=== PATIENT | female | born 1955 | race Caucasian/White ===

== ENCOUNTER 2025-03-30 17:32 | Emergency (ER) | payer OTHER, SELFPAY ==
[2025-03-30 17:35] VITALS: BP 158/96
[2025-03-30 18:00] LABS: Hematocrit 41.5 % (37.0-47.0); Hemoglobin 13.8 g/dL (12.0-16.0); Mean Corp Hgb Conc. 33.3 g/dL (33.0-37.0); Mean Corpuscular Volume 88.3 fL (81.0-99.0); Nucleated Red Blood Cells % 0 %; Platelet Count 215 10^3/uL (130-400); Red Cell Dist. Width 14.0 % (11.5-14.5)
[2025-03-30 18:06] LABS: ALT (SGPT) 19 U/L (0-35); AST (SGOT) 22 U/L (14-36); Albumin 4.8 g/dl (3.5-5.0); Alkaline Phosphatase 57 U/L (38-126); Blood Urea Nitrogen 16 mg/dl (7-17); Calcium 9.2 mg/dl (8.4-10.2); Carbon Dioxide 25 mmol/L (22-30); Chloride 105 mmol/L (98-107); Glucose 99 mg/dl (70-99); Potassium 3.9 mmol/L (3.5-5.1); Sodium 136 mmol/L (135-145); Total Protein 8.1 g/dl (6.3-8.2); eGFR > 60.00
[2025-03-30 18:17] LABS: Troponin I < 0.012 ng/ml
[2025-03-30 20:14] VITALS: BP 163/87; BMI 29.9
--- NOTE | 2025-03-30 20:21 | ED.GENMED ---
History of Present Illness
General
Chief Complaint: Fainting Sensation
Source: patient
Exam Limitations: none
Time Seen by Provider: 03/30/25 20:18
History of Present Illness
History of Present Illness:
69yoF with a history of hypothyroidism and osteoporosis presenting by EMS for evaluation of a syncopal episode a few hours ago. Patient was [place] the movie [place] and sitting down when she suddenly felt warm and overheated. She was wearing 2
sweaters and a jacket at the time and she took off her jacket. This was the last thing she remembers. Friend at bedside reports a witnessed syncopal episode that lasted <2 minutes. A nurse at the movies noted that patient appeared clammy and gave
her soda for concern for low blood sugar. She did not eat any breakfast or lunch today prior to this episode. There was no associated tongue biting, incontinence, postictal period. She felt back to normal on EMS arrival. Her only current symptom
is fatigue and she admits that she has been working nonstop this morning. She denies any chest pain, shortness of breath, palpitations, dizziness. Of note, her son has a history of WPW.
Phy Exam
General Physical Exam
General Presentation: well appearing and no apparent distress
General age: appears stated age
General Skin: warm and dry
General Habitus: normal
General Mental: alert
General Hydration: appears well hydrated
ENT Exam
ENT Exam: normocephalic
Cardiovascular Exam
Cardiovascular Exam: regular rate/rhythm and no edema
Pulmonary Exam
Pulmonary Exam: lungs clear, no respiratory distress, no rales, no crackles, no rhonchi, no stridor and no wheezing
Neurological Exam
Neurological Exam: alert
Madelaine Coma Scale
Eye Opening: Spontaneous
Verbal Response: Oriented
Motor Response: Obeys Commands
GCS Total Score: 15
Skin Exam
Skin Exam: normal color and warm/dry
Psychiatric Exam
Psychiatric Exam: normal mood/affect
Course
Orders/Labs/Results
Orders:
Orders
03/30/25 17:39
EKG [Electrocardiogram (*1)] Urgent
Reason for Study: Syncope
03/30/25 17:40
EKG- Treatment ONCE
03/30/25 17:42
CMP [Comprehensive Metabolic Panel] Urgent
Complete Blood Count/With Diff Urgent
Troponin I Urgent
03/30/25 20:39
Cardiac Monitoring- Treatment ONCE
03/30/25 20:40
Electrocardiogram (*1) Urgent
Reason for Study: Syncope
EKG- Treatment ONCE
03/30/25 20:59
Troponin I Urgent
Abnormal Lab Results
03/30/25
17:42
MPV 11.6 H fL
(7.4-10.4)
Absolute Neuts (auto) 7.7 H 10^3/uL
(1.4-6.5)
03/30/25 17:42
03/30/25 17:42
Vital Signs
Initial and Last Documented VS:
Initial Vital Signs
Temp Pulse Resp BP Pulse Ox
98.4 F 78 18 158/96 100
03/30/25 17:35 03/30/25 17:35 03/30/25 17:35 03/30/25 17:35 03/30/25 17:35
Last Documented Vital Signs
Temp Pulse Resp BP Pulse Ox
98.4 F 85 13 117/72 96
03/30/25 17:35 03/30/25 22:00 03/30/25 22:00 03/30/25 22:00 03/30/25 22:00
MDM/Problems Addressed
Differential Diagnosis Includes:
69yoF here after a syncopal episode. Sitting in a movie theater with 3 jackets/coats. Started to feel warm and had a witnessed syncopal episode. Now asymptomatic other than feeling fatigued. No CP/SOB. She is hypertensive with otherwise normal vital
signs. She is extremely well appearing and exam is reassuring. Differential diagnosis includes: vasovagal episode, orthostasis, dehydration, hypoglycemia, cardiogenic syncope
Initial ED plan: Workup initiated in triage. EKG shows NSR with PVCs. Very infrequent PVCs during initial exam. Labs unremarkable including normal renal function, glucose, and troponin. Will place on manager monitoring and check repeat troponin/EKG.
*Pulse Oximetry
SaO2: 100
Oxygen Mode of Delivery: Room air
Patient hypoxic: no
*EKG
Interpreted by ED Provider?: Yes
EKG Intrepretation Date: 03/30/25
Heart Rate: 83
Rate: normal
Rhythm: sinus and PVC's
Hankamer: normal axis
Interval: normal interval
QRS Pattern: normal QRS
Ischemia: no ischemia
*Critical Care Note
Total Time (30-74mins, 75-104mins- exclusive of procedures): Not Applicable
Update Note
Update Note:
Repeat troponin remains undetectable. No telemetry events throughout ED stay. She remains asymptomatic on reassessment other than fatigue. Suspect syncope was precipitated by overheating and lack of PO intake. No indication for hospitalization
and patient feels comfortable with discharge. She was advised to f/u closely with her PCP and strict ED return precautions reviewed. Patient discharged in stable condition with her friend.
ED Attending Note
-
Portions of this chart may have been created with voice recognition software.� Occasional wrong word or��sound alike� substitutions may have occurred due to the inherent limitations of voice recognition software.
Discharge Plan
Departure
Patient Disposition: Home (Routine Discharge)
Date of Disposition: 03/30/25
Time of Disposition: 21:58
Patient with high blood pressure during this ER visit?: Yes
Discharge Problem:
Syncope
Instructions: Syncope (Fainting) (DC)
Referrals:
An Mckeon E, DO [Family Provider]
Activity Restrictions/Additional Instructions:
Drink plenty of fluids and stay hydrated. Make sure to eat breakfast every morning.
Please follow-up with your family doctor in the next 2 to 3 days. Return to the ER immediately with any new or worsening symptoms or if you pass out again.
Interventions
Interventions:
*General Assessment Last Done: 03/30/25 20:15
*Neglect/Abuse Screening Last Done: 03/30/25 20:15
*ED COVID-19 Vaccine History Last Done: 03/30/25 20:15
*ED Influenza Vaccine History Last Done: 03/30/25 20:15
[facility] Fall Risk Assessment Tool Last Done: 03/30/25 20:15
*Risk Screen - Suicide (C-SSRS) Last Done: 03/30/25 20:15
*Nursing Disposition Last Done: 03/30/25 22:21
ED- Cardiac Assessment Last Done: 03/30/25 20:15
ED- Neurological Assessment Last Done: 03/30/25 20:22
Discharge Date and Time
Discharge Date/Time: 03/30/25 22:23
Print Language: CHADIAN
[2025-03-30 21:00] VITALS: BP 151/82
[2025-03-30 21:30] LABS: Troponin I < 0.012 ng/ml
[2025-03-30 22:00] VITALS: BP 117/72
== END 2025-03-30 22:23 | disposition home or self-care (01) ==
LOC: EMR 17:32
PROVIDERS: Emergency Medicine; Physician Assistant; EMERGENCY PHYSICIAN Student in an Organized Health Care Education/Training Program; FAMILY PHYSICIAN Family Medicine
DX: R55 Syncope and collapse (principal); I49.3 Ventricular premature depolarization; E03.9 Hypothyroidism, unspecified; M81.0 Age-related osteoporosis without current pathological fracture
CPT/HCPCS: 99284; 80053; 84484; 85025; 93005